=== PATIENT | male | born 1975 | race American Indian/Alaskan Native ===

== ENCOUNTER 2017-01-14 15:42 | Emergency (ER) | payer OTHER ==
[2017-01-14 16:10] VITALS: BP 107/78
--- NOTE | 2017-01-14 16:48 | Emergency Department Report ---
ED ENT HPI - General Chief complaint: Earache Stated complaint: EAR CHECK Time Seen by Provider: 01/14/17 16:40 Source: patient Mode of arrival: Ambulatory Limitations: No Limitations - History of Present Illness Initial comments: PT states he was told that he needs to be evaluated for plasma donation. PT states he had something in his R ear that was removed. PT denies pain. PT states nothing is wrong with his ear and he removed the piece of ear bud himself. pt states he thinks it was in his ear for 2 months. PT has no know drug allergies. 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 MD complaint: foreign body Location: R ear Severity scale (0 -10): 0 Consistency: now resolved Associated Symptoms: denies: fever, cough, pain with swallowing, sore throat, discharge from ear, rhinorrhea ED Dental HPI - General Chief complaint: Earache Stated complaint: EAR CHECK Time Seen by Provider: 01/14/17 16:40 Source: patient Mode of arrival: Ambulatory Limitations: No Limitations ED Review of Systems ROS: Stated complaint: EAR CHECK Other details as noted in HPI Comment: All other systems reviewed and negative Constitutional: denies: chills, fever ENT: denies: ear pain, hearing loss Respiratory: denies: cough, shortness of breath, SOB with exertion, SOB at rest Neurological: denies: headache ED Past Medical Hx - Past Medical History Previous Medical History?: No - Surgical History Past Surgical History?: No - Social History Smoking Status: Current Every Day Smoker Substance Use Type: Alcohol ED Physical Exam - General Limitations: No Limitations General appearance: alert, in no apparent distress - Head Head exam: Present: atraumatic, normocephalic, normal inspection - Eye Eye exam: Present: normal appearance. Absent: conjunctival injection - ENT ENT exam: Present: normal orophraynx, mucous membranes moist, normal external ear exam - Expanded ENT Exam Expanded Ear exam: Present: other (No FB noted in R ear canal. 9 o'clock position of R TM is cloudy - distorted landmarks ) TM/Canal exam: Loss of Landmarks: Right TM Mouth exam: Absent: drooling, trismus Throat exam: Positive: normal inspection. Negative: tonsillar erythema, tonsillomegaly, tonsillar exudate - Neck Neck exam: Present: normal inspection, full ROM - Respiratory Respiratory exam: Present: normal lung sounds bilaterally. Absent: respiratory distress, chest wall tenderness - Cardiovascular Cardiovascular Exam: Present: regular rate, normal rhythm, normal heart sounds - Extremities Exam Extremities exam: Present: normal inspection, full ROM - Back Exam Back exam: Present: normal inspection, full ROM - Neurological Exam Neurological exam: Present: alert, oriented X3, normal gait - Psychiatric Psychiatric exam: Present: normal affect, normal mood - Skin Skin exam: Present: warm, dry, intact, normal color ED Course Vital Signs 01/14/17 16:06 Temperature 98.2 F Pulse Rate 65 Respiratory 16 Rate Blood Pressure 107/78 O2 Sat by Pulse 100 Oximetry - Reevaluation(s) Reevaluation #1: 01/14/17 16:50 PT aware of abnormal findings on PE. PT states he has a PCP appointment on Friday. PT aware he will need to follow up with ENT. PT verbalizes understanding. - Pulse Oximetry Interpretation Digit-Finger Initial Pulse Oximetry Readin Actions Taken: none ED Medical Decision Making - Differential Diagnosis fb, om, oe Critical Care Time: No Critical care attestation.: If time is entered above; I have spent that time in minutes in the direct care of this critically ill patient, excluding procedure time. ED Disposition Clinical Impression: Disorder of tympanic membrane of right ear Disposition: DC-01 TO HOME OR SELFCARE Is pt being admited?: No Does the pt Need Aspirin: No Condition: Stable Instructions: Earache (ED) Referrals: PRIMARY CARE, [Primary Care Provider] - 3-5 Days DONG RIOS MD [Staff Physician] - 3-5 Days RIC PALACIOS MD [Staff Physician] - 3-5 Days LEEANN OLIVO MD [Staff Physician] - 3-5 Days MAE MALDONADO MD [Staff Physician] - 3-5 Days Forms: Work/School Release Form(ED) Time of Disposition: 16:53
== END 2017-01-14 17:07 | disposition home or self-care (01) ==
LOC: ED 15:42
DX: H73.91 Unspecified disorder of tympanic membrane, right ear (principal); F17.200 Nicotine dependence, unspecified, uncomplicated
CPT/HCPCS: 99282

== ENCOUNTER 2017-01-26 16:45 | Emergency (ER) | payer OTHER ==
[2017-01-26 16:57] VITALS: BP 100/65
[2017-01-26] MEDS ORDERED: NACL 0.9% 1000 ML 1,000 ML IV ONE (17:09)
--- NOTE | 2017-01-26 17:10 | Emergency Department Report ---
- General Chief complaint: Skin/Abscess/Foreign Body Stated complaint: CHEST ABSCESS Time Seen by Provider: 01/26/17 17:08 Source: patient Mode of arrival: Ambulatory Limitations: No Limitations - History of Present Illness Initial comments: 41-year-old male past medical history smoker, keloids presents with complaint of 2 weeks of anterior left upper chest wall "boil" which has gotten progressively larger and more uncomfortable to the patient. Patient denies any fevers chills shortness of breath or chest pain otherwise. There is a large approximately golf ball sized abscess visible on the left anterior pectoral chest wall. MD complaint: abscess/boil Onset/Timin -: week(s) Severity: mild Quality: sharp Consistency: constant Improves with: none Worsens with: none Context: none Treatments Prior to Arrival: none - Related Data Previous Rx's Medication Instructions Recorded Last Taken Type Acetaminophen/Codeine [Tylenol 1 tab PO Q6H PRN #10 tab 01/26/17 Unknown Rx /Codeine # 3 tab] Cephalexin [Keflex] 500 mg PO Q12HR #14 cap 01/26/17 Unknown Rx Ibuprofen [Motrin] 800 mg PO Q8HR PRN #30 tablet 01/26/17 Unknown Rx Sulfamethoxazole/Trimethoprim 1 each PO BID #14 tablet 01/26/17 Unknown Rx [Bactrim DS TAB] Allergies Allergy/AdvReac Type Severity Reaction Status Date / Time No Known Allergies Allergy Unverified 01/26/17 16:56 Abscess Boil HPI - HPI Chief Complaint: Skin/Abscess/Foreign Body Stated Complaint: CHEST ABSCESS Time Seen by Provider: 01/26/17 17:08 Home Medications: Previous Rx's Medication Instructions Recorded Last Taken Type Acetaminophen/Codeine [Tylenol 1 tab PO Q6H PRN #10 tab 01/26/17 Unknown Rx /Codeine # 3 tab] Cephalexin [Keflex] 500 mg PO Q12HR #14 cap 01/26/17 Unknown Rx Ibuprofen [Motrin] 800 mg PO Q8HR PRN #30 tablet 01/26/17 Unknown Rx Sulfamethoxazole/Trimethoprim 1 each PO BID #14 tablet 01/26/17 Unknown Rx [Bactrim DS TAB] Allergies/Adverse Reactions: Allergies Allergy/AdvReac Type Severity Reaction Status Date / Time No Known Allergies Allergy Unverified 01/26/17 16:56 ED Review of Systems ROS: Stated complaint: CHEST ABSCESS Other details as noted in HPI Constitutional: denies: chills, fever Eyes: denies: eye pain, eye discharge, vision change ENT: denies: ear pain, throat pain Respiratory: denies: cough, shortness of breath, wheezing Cardiovascular: denies: chest pain, palpitations Endocrine: no symptoms reported Gastrointestinal: denies: abdominal pain, nausea, diarrhea Genitourinary: denies: urgency, dysuria Musculoskeletal: denies: back pain, joint swelling, arthralgia Skin: as per HPI (2 weeks of left anterior chest wall abscess). denies: rash, lesions Neurological: denies: headache, weakness, paresthesias Psychiatric: denies: anxiety, depression Hematological/Lymphatic: denies: easy bleeding, easy bruising ED Past Medical Hx - Past Medical History Previous Medical History?: No - Surgical History Past Surgical History?: No - Social History Smoking Status: Current Every Day Smoker Substance Use Type: Alcohol, Non Opiate Pain - Medications Home Medications: Home Medications Medication Instructions Recorded Confirmed Last Taken Type Acetaminophen/Codeine [Tylenol 1 tab PO Q6H PRN #10 tab 01/26/17 Unknown Rx /Codeine # 3 tab] Cephalexin [Keflex] 500 mg PO Q12HR #14 cap 01/26/17 Unknown Rx Ibuprofen [Motrin] 800 mg PO Q8HR PRN #30 tablet 01/26/17 Unknown Rx Sulfamethoxazole/Trimethoprim 1 each PO BID #14 tablet 01/26/17 Unknown Rx [Bactrim DS TAB] ED Physical Exam - General Limitations: No Limitations General appearance: alert, in no apparent distress - Head Head exam: Present: atraumatic, normocephalic - Eye Eye exam: Present: normal appearance, PERRL, EOMI - ENT ENT exam: Present: mucous membranes moist - Neck Neck exam: Present: normal inspection - Respiratory Respiratory exam: Present: normal lung sounds bilaterally, chest wall tenderness (there is a large golf ball sized abscess left anterior chest wall to the left of sternum overlying pectoral region). Absent: respiratory distress - Cardiovascular Cardiovascular Exam: Present: regular rate, normal rhythm. Absent: systolic murmur, diastolic murmur, rubs, gallop - GI/Abdominal GI/Abdominal exam: Present: soft, normal bowel sounds - Rectal Rectal exam: Present: deferred - Extremities Exam Extremities exam: Present: normal inspection - Back Exam Back exam: Present: normal inspection - Neurological Exam Neurological exam: Present: alert, oriented X3, CN II-XII intact, normal gait - Psychiatric Psychiatric exam: Present: normal affect, normal mood - Skin Skin exam: Present: warm, dry, intact, normal color, other (abscess). Absent: rash - Expanded Skin Exam Expanded 1 - size of abscess w/ surrounding cellulitis ED Course Vital Signs 01/26/17 16:54 Temperature 98.1 F Pulse Rate 75 Respiratory 16 Rate Blood Pressure 100/65 O2 Sat by Pulse 99 Oximetry - I & D Left Upper Chest Type of Procedure: Simple Site: left anterior chest wall Blade Size: 11 I & D Procedure: betadine prep, sterile dressing applied, gauze wick placed (4 inches of 1 inch iodofrom gauze) Progress: Area is infiltrated with lidocaine 2% with epinephrine, approximately 7-8 mL used to surround abscess. Single 1.5 cm diagonal incision made following lingers lines to central portion of abscess. Significant amount of purulent drainage at least 10-11 mL. Mild bleeding. Wound irrigated with 30 mL of saline and decompressed via manipulation with forceps and pressure to site. Significant decompression achieved. Seizure tolerated well by the patient. Minimal bleeding. 4 inches of 1 inch iodoform gauze packed into the wound. Covered with 4 x 4 gauze and tape afterward. ED Medical Decision Making - Lab Data Result diagrams: 01/26/17 17:52 01/26/17 17:52 - Medical Decision Making A/P: Left anterior chest wall abscess 1-case discussed with 2-CT with contrast performed, the abscess was found to be superficial and not penetrating chest wall tissues 3-local incision and drainage performed, significant decompression achieved. Patient to return to the ED in 48 hours for wound check and packing removal 4-patient prescribed Bactrim and Keflex twice a day 7 days, short course Motrin when necessary, short course Tylenol 3 when necessary Critical care attestation.: If time is entered above; I have spent that time in minutes in the direct care of this critically ill patient, excluding procedure time. ED Disposition Clinical Impression: Chest wall abscess, Encounter for incision and drainage procedure Disposition: TO HOME OR SELFCARE Is pt being admited?: No Does the pt Need Aspirin: No Condition: Stable Instructions: Abscess (ED), Abscess Incision and Drainage (ED), Acute Wound Care (ED) Additional Instructions: Patient to return to the ED N 48 hours for packing removal and wound check Prescriptions: Acetaminophen/Codeine [Tylenol /Codeine # 3 tab] 1 tab PO Q6H PRN #10 tab PRN Reason: Pain Cephalexin [Keflex] 500 mg PO Q12HR #14 cap Ibuprofen [Motrin] 800 mg PO Q8HR PRN #30 tablet PRN Reason: Pain Sulfamethoxazole/Trimethoprim [Bactrim DS TAB] 1 each PO BID #14 tablet Referrals: [facility] [Provider Group] - 3-5 Days Forms: Work/School Release Form(ED) Time of Disposition: 21:21
[2017-01-26] MEDS ORDERED: MORPHINE IV ONE ×2 (17:18→21:08)
[2017-01-26] MEDS ORDERED: NACL ONE (17:20)
[2017-01-26 18:13] LABS: Basophils % (Auto) 0.5 % (0.0-1.8); Eosinophils % (Auto) 1.2 % (0.0-4.3); Hematocrit 41.2 % (35.5-45.6); Hemoglobin 13.8 gm/dl (11.8-15.2); Mean Corpuscular HGB Conc 33 % (32-34); Mean Corpuscular Hemoglobin 30 pg (28-32); Mean Corpuscular Volume 88 fl (84-94); Platelet Count 239 K/mm3 (140-440); Red Blood Count 4.67 M/mm3 (3.65-5.03); Red Cell Distribution Width 11.4 % (13.2-15.2); White Blood Count 5.6 K/mm3 (4.5-11.0)
[2017-01-26 18:30] LABS: Anion Gap 16 mmol/L; Blood Urea Nitrogen 10 mg/dL (9-20); Calcium 8.6 mg/dL (8.4-10.2); Carbon Dioxide 25 mmol/L (22-30); Chloride 105.8 mmol/L (98-107); Glucose 87 mg/dL (75-100); Potassium 4.3 mmol/L (3.6-5.0); Sodium 142 mmol/L (137-145)
--- NOTE | 2017-01-26 19:57 | Cat Scan Report ---
FINAL REPORT PROCEDURE: CT CHEST W CON TECHNIQUE: Computerized axial tomography of the chest was performed during the IV injection of iodinated nonionic contrast. HISTORY: large left sided abscess extruding from chest wall COMPARISON: No prior studies are available for comparison. TECHNICAL QUALITY: Satisfactory. FINDINGS: Heart and pericardium: Normal. Thoracic aorta: Normal. Pulmonary vasculature: Normal. Lymph nodes: No enlarged thoracic lymph nodes. Lungs: Normal. Pleural space: No effusion, thickening, or pneumothorax. Musculoskeletal structures: There is a cutaneous and subcutaneous hypodense lesion in the left anterior parasternal region measuring 2.4 x 4.0 centimeters which appears to contain some septations and 8th involved capsule. It has no intrathoracic communication. There is no involvement of the musculoskeletal structures.. Upper abdominal structures: No significant abnormality. IMPRESSION: A hypodense lesion of the left anterior chest wall involving predominantly the skin and subcutaneous plane most likely represents an abscess. There is no intrathoracic extension.
[2017-01-26] MEDS ORDERED: MORPHINE ONE (20:47)
[2017-01-26] MEDS ORDERED: BACTRIM DS PO ONE (21:25)
[2017-01-26] MEDS ORDERED: KEFLEX PO ONE (21:25)
[2017-01-26] MEDS ORDERED: MOTRIN PO ONE (21:25)
== END 2017-01-26 21:33 | disposition home or self-care (01) ==
LOC: ED 16:45
DX: L02.213 Cutaneous abscess of chest wall (principal); F17.200 Nicotine dependence, unspecified, uncomplicated
CPT/HCPCS: 10060; 36415; 71260; 80048; 82140; 85025; 87116; 96361; 96374; 96376; 99284; J2270; J7030; Q9967

== ENCOUNTER 2017-01-28 18:16 | Emergency (ER) | payer OTHER ==
[2017-01-28 18:29] VITALS: BP 115/68
--- NOTE | 2017-01-28 19:35 | Emergency Department Report ---
- General Chief Complaint: Laceration/Recheck/Suture Stated Complaint: PACKING REMOVED/CHANGED Time Seen by Provider: 01/28/17 19:04 Source: patient Mode of arrival: Ambulatory Limitations: No Limitations - History of Present Illness Initial Comments: Patient is a 41-year-old male who presents to ED for follow-up of I&D that was done 2 days ago. Patient reports that patient drainage has improved along with the tenderness. Denies any other symptoms currently. Onset/Timin -: Sudden, days(s) Location: chest (left chest wall) Place: home Patient Tetanus UTD: Yes Associated Symptoms: none. denies: loss of feeling/numbness, suspect foreign body present, unable to move injured part, nausea/vomiting, fever - Related Data Previous Rx's Medication Instructions Recorded Last Taken Type Acetaminophen/Codeine [Tylenol 1 tab PO Q6H PRN #10 tab 01/26/17 Unknown Rx /Codeine # 3 tab] Cephalexin [Keflex] 500 mg PO Q12HR #14 cap 01/26/17 Unknown Rx Ibuprofen [Motrin] 800 mg PO Q8HR PRN #30 tablet 01/26/17 Unknown Rx Sulfamethoxazole/Trimethoprim 1 each PO BID #14 tablet 01/26/17 Unknown Rx [Bactrim DS TAB] Allergies Allergy/AdvReac Type Severity Reaction Status Date / Time No Known Allergies Allergy Unverified 01/28/17 18:23 ED Review of Systems ROS: Stated complaint: PACKING REMOVED/CHANGED Other details as noted in HPI Constitutional: denies: chills, fever Eyes: denies: eye pain, eye discharge, vision change Respiratory: denies: cough, shortness of breath, wheezing Cardiovascular: denies: chest pain, palpitations Musculoskeletal: denies: back pain, joint swelling, arthralgia Skin: as per HPI (I&D wound to left chest). denies: rash, lesions, change in color, pruritus Neurological: denies: headache, weakness, paresthesias Psychiatric: denies: anxiety, depression ED Past Medical Hx - Past Medical History Previous Medical History?: No - Surgical History Past Surgical History?: No - Social History Smoking Status: Current Every Day Smoker Substance Use Type: Alcohol - Medications Home Medications: Home Medications Medication Instructions Recorded Confirmed Last Taken Type Acetaminophen/Codeine [Tylenol 1 tab PO Q6H PRN #10 tab 01/26/17 Unknown Rx /Codeine # 3 tab] Cephalexin [Keflex] 500 mg PO Q12HR #14 cap 01/26/17 Unknown Rx Ibuprofen [Motrin] 800 mg PO Q8HR PRN #30 tablet 01/26/17 Unknown Rx Sulfamethoxazole/Trimethoprim 1 each PO BID #14 tablet 01/26/17 Unknown Rx [Bactrim DS TAB] ED Physical Exam - General Limitations: No Limitations General appearance: alert, in no apparent distress - Head Head exam: Present: atraumatic, normocephalic - Eye Eye exam: Present: normal appearance - Respiratory Respiratory exam: Present: normal lung sounds bilaterally. Absent: respiratory distress - Cardiovascular Cardiovascular Exam: Present: regular rate, normal rhythm. Absent: systolic murmur, diastolic murmur, rubs, gallop - Neurological Exam Neurological exam: Present: alert, oriented X3 - Psychiatric Psychiatric exam: Present: normal affect, normal mood - Skin Skin exam: Present: dry, intact, normal color, other (I&D wound to the left chest wall appears to be dry and healing well. No pustular drainage noted at this time. Packing noted to be intact.). Absent: erythema ED Course Vital Signs 01/28/17 18:24 Temperature 97.9 F Pulse Rate 59 L Respiratory 18 Rate Blood Pressure 115/68 O2 Sat by Pulse 100 Oximetry ED Medical Decision Making - Medical Decision Making Patient is resting comfortably. I&D wound appears to be healing well. Advised continue with the anti-biotics for now. May return to ED for worsening symptoms. - Differential Diagnosis I and D, wound check, cellulitis, abscess. Critical care attestation.: If time is entered above; I have spent that time in minutes in the direct care of this critically ill patient, excluding procedure time. ED Disposition Clinical Impression: Wound check, abscess Disposition: DC-01 TO HOME OR SELFCARE Is pt being admited?: No Does the pt Need Aspirin: No Condition: Stable Instructions: Abscess (ED), Abscess Incision and Drainage (ED) Referrals: JAMI TAYLOR MD [Staff Physician] - 3-5 Days Time of Disposition: 19:36
== END 2017-01-28 19:40 | disposition home or self-care (01) ==
LOC: ED 18:16
DX: Z48.00 Encounter for change or removal of nonsurgical wound dressing (principal); F17.200 Nicotine dependence, unspecified, uncomplicated